=== PATIENT | female | born 1960 | race Caucasian/White ===

== ENCOUNTER 2017-03-12 09:53 | Emergency (ER) | payer BC ==
[2017-03-12 09:58] VITALS: BMI 25.6
--- NOTE | 2017-03-12 10:21 | PDOC ---
Attending Attestation - Resident Resident Name: Huy Simental - ED Attending Attestation I have performed the following: I have examined & evaluated the patient, The case was reviewed & discussed with the resident, I agree w/resident's findings & plan, Exceptions are as noted - HPI HPI: 03/12/17 10:20 neuralgia like headache since sunday - Physicial Exam PE: 03/12/17 10:20 VSS / NAD / NONTOXIC BENIGN NEUROEXAM - Medical Decision Making 03/12/17 10:21 03/12/17 10:[address] Huy Simental's Assessment and Plan
[2017-03-12] MEDS: PREGABALIN 100 MG CAPSULE PO ONE ×2 (10:33→10:40)
[2017-03-12] MEDS ORDERED: PREGABALIN 100 MG CAPSULE ONE ×2 (10:34→11:46)
--- NOTE | 2017-03-12 10:35 | PDOC ---
History of Present Illness - General Chief Complaint: Headache Stated Complaint: HEADACHE Time Seen by Provider: 03/12/17 10:03 History Source: Patient Exam Limitations: No Limitations - History of Present Illness Initial Comments: 03/12/17 10:30 The patient is a 57F with no PMH who presents to the ED with headache. The headache started 2 days ago and is described as a sharp, parietal pain which lasts for 30seconds to 1 minute then goes away for 5 minutes to 20 minutes. The patient's is at bedside and also states that the patient has been more tired since Sunday. The patient denies any radiation and also states that it feels better when she stands still. Tylenol has not made it feel better. The patient denies fever, chills, CP, SOB, nausea, vomiting, changes in vision, eye pain, ear pain, and neck stiffness. Past History - Past Medical History Allergies/Adverse Reactions: Allergies Allergy/AdvReac Type Severity Reaction Status Date / Time sulfamethoxazole Allergy Verified 03/12/17 09:58 [From Bactrim] trimethoprim [From Bactrim] Allergy Verified 03/12/17 09:58 Home Medications: Ambulatory Orders Pregabalin [Lyrica -] 50 mg PO TID #21 capsule MDD 3 03/12/17 Other medical history: denies - Suicide/Smoking/Psychosocial Hx Smoking History: Never smoked Hx Alcohol Use: No Drug/Substance Use Hx: No Substance Use Type: None Review of Systems - Review of Systems Able to Perform ROS?: Yes Is the patient limited Thai proficient: No Constitutional: No: Chills, Fever, Weakness HEENTM: No: Eye Pain, Blurred Vision, Recent change in vision, Double Vision, Nose Pain, Throat Pain Respiratory: No: Cough, Shortness of Breath Cardiac (ROS): No: Chest Pain, Palpitations ABD/GI: No: Nausea, Vomiting : No: Burning, Dysuria Musculoskeletal: No: Muscle Pain, Muscle Weakness Integumentary: No: Bruising, Rash, Sweating Neurological: Yes: Headache. No: Numbness, Tingling, Weakness Psychiatric: No: Stressors, Sleep Pattern Change *Physical Exam - Vital Signs Last Vital Signs Temp Pulse Resp BP Pulse Ox 97.9 F 72 18 156/94 100 03/12/17 09:56 03/12/17 09:56 03/12/17 09:56 03/12/17 09:56 03/12/17 09:56 - Physical Exam General Appearance: Yes: Nourished, Appropriately Dressed. No: Apparent Distress HEENT: positive: Normal Voice, Pharynx Normal, Hearing Grossly Normal. negative : Tonsillar Exudate, Tonsillar Erythema, Nasal Congestion Neck: negative: Lymphadenopathy (R), Lymphadenopathy (L) Respiratory/Chest: positive: Lungs Clear, Normal Breath Sounds. negative: Chest Tender, Accessory Muscle Use Cardiovascular: positive: Regular Rhythm, Regular Rate, S1, S2. negative: Diastolic Murmur, Systolic Murmur Gastrointestinal/Abdominal: positive: Flat, Soft. negative: Tender Musculoskeletal: negative: CVA Tenderness, CVA Tenderness (R), CVA Tenderness (L ) Extremity: positive: Normal Inspection, Normal Range of Motion. negative: Swelling, Calf Tenderness Integumentary: positive: Dry, Warm. 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 negative: Abnormal Cranial NS, EOM Palsy, Facial Droop, Numbness, Sensory Deficit, Confused, Disoriented, Depressed Affect ED Treatment Course - LABORATORY CBC & Chemistry Diagram: 03/12/17 10:33 03/12/17 10:33 - RADIOLOGY Radiology Studies Ordered: Category Date Time Status HEAD CT WITHOUT CONTRAST [CT] Stat CT Scan 03/12/17 10:23 Ordered Medical Decision Making - Medical Decision Making 03/12/17 10:37 The patient is a 57F with no PMH who presents to the ED with a persistent headache since Sunday. Due to the acute onset, I am concerned for a mass- occupying lesion. I am also concerned for a neuralgia and will give the patient pregabalin for symptomatic treatment. Will reassess when labs/imaging return. 03/12/17 11:59 CT head is negative. 03/12/17 12:19 The patient states that she is feeling a little better with the lyrica. She had initially refused it. Will reassess in 30 minutes. 03/12/17 12:54 The patient states that her pains are not as severe. Will prescribe this as outpatient med and have follow up with PCP. *DC/Admit/Observation/Transfer Diagnosis at time of Disposition: Neuralgia - Discharge Dispostion Disposition: HOME Condition at time of disposition: Improved - Patient Instructions Printed Discharge Instructions: Trigeminal Neuralgia, DI for Trigeminal Neuralgia Additional Instructions: Please return to the ER if symptoms progress, worsen, or new symptoms arise. Please follow up with your primary care doctor in 2-3 days. Please ask your primary care doctor for a neurology referral. Please take the Lyrica as prescribed until your neurologist appointment.
[2017-03-12 10:38] LABS: BASOPHIL 0.9 % (0-2.0); EOSINOPHIL 4.1 % (0-4.5); MCH 27.7 pg (25.7-33.7); MCHC 33.4 g/dl (32.0-36.0); MEAN CELL VOLUME 82.8 fl (80-96); NEUTROPHILS 50.8 % (42.8-82.8); PLATELET COUNT 186 K/MM3 (134-434); RDW 13.6 % (11.6-15.6); WHITE BLOOD COUNT 4.5 K/mm3 (4.0-10.0)
[2017-03-12 11:10] LABS: ALBUMIN 4.3 g/dl (3.4-5.0); ANION GAP 8 (8-16); BILIRUBIN,TOTAL 0.7 mg/dL (0.2-1.0); CALCIUM 9.2 mg/dL (8.5-10.1); CO2 31 mmol/L (21-32); CREATININE 0.8 mg/dL (0.55-1.02); GLUCOSE,RANDOM 77 mg/dL (74-106); SGOT/AST 20 U/L (15-37); SGPT/ALT 25 U/L (12-78); TOT PROT 7.8 g/dl (6.4-8.2)
[2017-03-12 11:11] LABS: ALK PHOS 56 U/L (45-117)
[2017-03-12] MEDS ORDERED: PREGABALIN 100 MG CAPSULE PO ONE (11:46)
[2017-03-12] MEDS ORDERED: SODIUM CHLORIDE 0.9% 1000 ML INFUS.BAG IV ONE (11:47)
[2017-03-12 13:09] VITALS: BP 165/95; PULSE 68; TEMP 98.4
== END 2017-03-12 13:16 | disposition home or self-care (01) ==
LOC: JER 09:53
DX: G50.0 Trigeminal neuralgia (principal)
CPT/HCPCS: 36415; 70450-TC; 80053; 85025; 85651; 99282-25